=== PATIENT | female | born 1980 | race African-American/Black ===

== ENCOUNTER 2019-10-11 16:05 | Emergency (ER) | payer BC ==
[~2019-10-11] VITALS: Ht 162.6 cm; Wt 83.5 kg
[2019-10-11] MEDS ORDERED: CYCLOBENZAPRINE HCL 10 MG TAB PO NR (17:00)
[2019-10-11] MEDS ORDERED: ACETAMINOPHEN/CODEINE 300MG - 30MG TAB PO NR (17:00)
[2019-10-11 17:22] LABS: CLARITY,URINE CLEAR (CLEAR); COLOR,URINE YELLOW (YELLOW)
[2019-10-11 17:23] LABS: LEUKOCYTE ESTERASE ,URINE NEGATIVE (NEGATIVE)
[2019-10-11 17:24] LABS: NITRITE,URINE NEGATIVE (NEGATIVE); PROTEIN,URINE DIPSTICK NEGATIVE (NEGATIVE)
[2019-10-11 17:25] LABS: KETONES,URINE NEGATIVE (NEGATIVE); URINE UROBILINOGEN 0.2 mg/dL (0.2 - 1)
[2019-10-11 17:26] LABS: BACTERIA,URINE RARE /HPF; BILIRUBIN,URINE SMALL (NEGATIVE); EPITHELIAL CELLS,URINE FEW /LPF; RBC,URINE 0-5 /HPF (0-5); WBC,URINE (MAN) 0-5 /HPF (0-5)
[2019-10-11 17:27] LABS: PREGNANCY TEST, URINE NEGATIVE (NEGATIVE)
[2019-10-11] MEDS ORDERED: TYLENOL WITH C1 EACH PO (18:11)
[2019-10-11] MEDS ORDERED: CYCLOBENZAPRINE5 MG PO (18:11)
== END 2019-10-11 18:15 | disposition home or self-care (01) ==
LOC: ER 16:05
DX: S16.1XXA Strain of muscle, fascia and tendon at neck level, initial encounter (principal); J45.909 Unspecified asthma, uncomplicated; M79.7 Fibromyalgia; V49.00XA Driver injured in collision with unspecified motor vehicles in nontraffic accident, initial encounter
CPT/HCPCS: 81001; 81025; 99283

== ENCOUNTER → 2020-10-11 | Outpatient (CLI) | payer OTHER ==
[~2020-10-11] MED LIST: COVID-19 VACC, MRNA(MODERNA)/PF 100 MCG/0.5 ML VIAL IM ONE; CYCLOBENZAPRINE5 MG PO; TYLENOL WITH C1 EACH PO
== END ==
LOC: VACCPMC 06:30
DX: Z23 Encounter for immunization (principal); Z20.822 Contact with and (suspected) exposure to COVID-19

== ENCOUNTER → 2020-11-11 | Outpatient (CLI) | payer OTHER | END | DRG 951 | LOC: VACCPMC 09:38 | DX: Z23 Encounter for immunization (principal); Z20.822 Contact with and (suspected) exposure to COVID-19 | CPT/HCPCS: 0012A; 91301 ==

== ENCOUNTER → 2021-08-08 | Outpatient (CLI) | payer OTHER | LOC: VACCPMC 09:00 | DX: Z23 Encounter for immunization (principal); Z20.822 Contact with and (suspected) exposure to COVID-19 ==